=== PATIENT | male | born 2000 | race African-American/Black ===

== ENCOUNTER 2021-05-06 10:02 | Emergency (ER) | payer SELFPAY ==
[~2021-05-06] VITALS: Ht 193 cm; Wt 85.0 kg
[2021-05-06 10:44] VITALS: BP 124/68
== END 2021-05-06 11:03 | disposition home or self-care (01) ==
LOC: ER 10:02
DX: R55 Syncope and collapse (principal); Z48.00 Encounter for change or removal of nonsurgical wound dressing
CPT/HCPCS: 99281